=== PATIENT | female | born 1930 | race Asian ===

== ENCOUNTER → 2017-03-09 | Outpatient (CLI) | payer MEDICARE, OTHER ==
[~2017-03-09] VITALS: Ht 144.8 cm; Wt 40.0 kg
[~2017-03-09] MED LIST: ADV100 IH; ALBU8.5H3 IH; DABI75CA3 PO; FLUT16H NASAL; ISOS10TA16 PO; METO25XL PO; MONT10TA21 PO; MULT-1203 PO; PRAV20TA4 PO; PRED20 PO
[2017-03-09 13:48] VITALS: BP 137/74
== END | disposition home or self-care (01) ==
LOC: SRCNTR 13:33
PROVIDERS: ATTEND Internal Medicine Critical Care Medicine
DX: A15.0 Tuberculosis of lung (principal); J90 Pleural effusion, not elsewhere classified; I10 Essential (primary) hypertension; I48.91 Unspecified atrial fibrillation
CPT/HCPCS: G0463

== ENCOUNTER → 2017-03-09 | Outpatient (CLI) | payer MEDICARE, OTHER ==
[2017-03-09 17:07] LABS: ALBUMIN 2.7 g/dL (3.4-5.0); BILIRUBIN,TOTAL 0.5 mg/dL (0.1-1.0); TOTAL PROTEIN, SERUM 7.1 g/dL (6.4-8.2)
[2017-03-09 17:08] LABS: BILIRUBIN,DIRECT 0.2 mg/dL (0.00-0.20)
== END | disposition home or self-care (01) ==
LOC: LABPV 15:01
PROVIDERS: ATTEND Internal Medicine Critical Care Medicine
DX: A15.9 Respiratory tuberculosis unspecified (principal)

== ENCOUNTER → 2017-04-09 | Outpatient (CLI) | payer MEDICARE, OTHER ==
[~2017-04-09] VITALS: Ht 144.8 cm; Wt 40.5 kg
[~2017-04-09] MED LIST changes: -PRED20 PO
[2017-04-09 11:14] VITALS: BP 148/70
== END | disposition home or self-care (01) ==
LOC: SRCNTR 11:03
PROVIDERS: ATTEND Internal Medicine Critical Care Medicine
DX: I10 Essential (primary) hypertension (principal); I48.91 Unspecified atrial fibrillation; J45.909 Unspecified asthma, uncomplicated; J90 Pleural effusion, not elsewhere classified; A15.0 Tuberculosis of lung; Z79.01 Long term (current) use of anticoagulants; Z86.73 Personal history of transient ischemic attack (TIA), and cerebral infarction without residual deficits
CPT/HCPCS: G0463

== ENCOUNTER → 2017-04-28 | Outpatient (CLI) | payer MEDICARE, OTHER ==
[2017-04-28 16:18] LABS: ALBUMIN 3.5 g/dL (3.4-5.0); BILIRUBIN,TOTAL 0.6 mg/dL (0.1-1.0); TOTAL PROTEIN, SERUM 7.8 g/dL (6.4-8.2)
[2017-04-28 16:26] LABS: BILIRUBIN,DIRECT 0.2 mg/dL (0.00-0.20)
== END | disposition home or self-care (01) ==
LOC: LABPV 13:44
PROVIDERS: ATTEND Internal Medicine Critical Care Medicine
DX: R94.5 Abnormal results of liver function studies (principal)

== ENCOUNTER → 2017-06-08 | Outpatient (CLI) | payer MEDICARE, OTHER ==
[~2017-06-08] VITALS: Ht 144.8 cm; Wt 41.0 kg
[~2017-06-08] MED LIST changes: +ISON100 PO; +PYRI50TA9 PO; +RIFAB150 PO
[2017-06-08 14:07] VITALS: BP 153/68
== END | disposition home or self-care (01) ==
LOC: SRCNTR 13:34
PROVIDERS: ATTEND Internal Medicine Critical Care Medicine
DX: A15.0 Tuberculosis of lung (principal); J90 Pleural effusion, not elsewhere classified; J45.909 Unspecified asthma, uncomplicated; I48.91 Unspecified atrial fibrillation; I10 Essential (primary) hypertension; Z79.01 Long term (current) use of anticoagulants; Z86.73 Personal history of transient ischemic attack (TIA), and cerebral infarction without residual deficits
CPT/HCPCS: G0463

== ENCOUNTER → 2017-08-10 | Outpatient (CLI) | payer MEDICARE, OTHER ==
[2017-08-10 16:21] LABS: ALBUMIN 3.4 g/dL (3.4-5.0); BILIRUBIN,TOTAL 0.8 mg/dL (0.1-1.0); TOTAL PROTEIN, SERUM 7.5 g/dL (6.4-8.2)
[2017-08-10 16:23] LABS: BILIRUBIN,DIRECT 0.5 mg/dL (0.00-0.20)
== END | disposition home or self-care (01) ==
LOC: LABPV 14:26
PROVIDERS: ATTEND Internal Medicine Critical Care Medicine
DX: A15.0 Tuberculosis of lung (principal)

== ENCOUNTER → 2017-09-02 | Outpatient (CLI) | payer MEDICARE, OTHER ==
[~2017-09-02] VITALS: Ht 144.8 cm; Wt 43.0 kg
[2017-09-02 12:37] VITALS: BP 178/99
== END | disposition home or self-care (01) ==
LOC: SRCNTR 12:18
PROVIDERS: ATTEND Internal Medicine Critical Care Medicine
DX: A15.0 Tuberculosis of lung (principal); J90 Pleural effusion, not elsewhere classified; I48.91 Unspecified atrial fibrillation; I10 Essential (primary) hypertension
CPT/HCPCS: G0463

== ENCOUNTER → 2017-11-04 | Outpatient (CLI) | payer MEDICARE, OTHER ==
[~2017-11-04] MED LIST changes: -MULT-1203 PO
[2017-11-04 17:25] LABS: ALBUMIN 3.3 g/dL (3.4-5.0); BILIRUBIN,DIRECT 0.3 mg/dL (0.00-0.20); BILIRUBIN,TOTAL 0.8 mg/dL (0.1-1.0); TOTAL PROTEIN, SERUM 7.2 g/dL (6.4-8.2)
== END | disposition home or self-care (01) ==
LOC: LABPV 14:27
PROVIDERS: ATTEND Internal Medicine Critical Care Medicine
DX: A15.0 Tuberculosis of lung (principal)

== ENCOUNTER → 2017-11-20 | Outpatient (CLI) | payer MEDICARE, OTHER ==
[~2017-11-20] VITALS: Ht 144.8 cm; Wt 42.5 kg
[2017-11-20 13:25] VITALS: BP 173/77
== END | disposition home or self-care (01) ==
LOC: SRCNTR 12:40
PROVIDERS: ATTEND Internal Medicine Critical Care Medicine
DX: A15.0 Tuberculosis of lung (principal); J90 Pleural effusion, not elsewhere classified; I48.91 Unspecified atrial fibrillation; I10 Essential (primary) hypertension; J44.9 Chronic obstructive pulmonary disease, unspecified; E78.5 Hyperlipidemia, unspecified; Z86.73 Personal history of transient ischemic attack (TIA), and cerebral infarction without residual deficits; Z88.9 Allergy status to unspecified drugs, medicaments and biological substances
CPT/HCPCS: G0463